=== PATIENT | female | born 1970 | race Caucasian/White ===

== ENCOUNTER 2021-04-29 11:00 | Day surgery (SDC) | payer BC ==
[~2021-04-29 11:00] MED LIST: Bupivacaine 0.5% 30 ML SDV ONE; Dexamethasone 4 MG/ML SDV ONE; Glycopyrrolate 0.2 MG/ML 5 ML MDV ONE; Lactated Ringers 1,000 ML IV SCH; Neostigmine Methylsulfate 1 MG/ML 5 ML Syringe ONE; Nozin Nasal Sanitizer NASBOTH ONE; Ondansetron 4 MG/2 ML SDV ONE; Propofol 200 MG/20 ML SDV ONE; Rocuronium 50 MG/5 ML Vial ONE; Succinylcholine 200 MG/10 ML MDV ONE; ceFAZolin 2 GM in Premix Bag 1 BAG IV ONE; fentaNYL 250 MCG/5 ML SDV ONE
[2021-04-29] MEDS ORDERED: fentaNYL 250 MCG/5 ML SDV ONE (13:08)
[2021-04-29] MEDS: Bupivacaine 0.5% 50 ML MDV ONE ×2 (13:46→14:50)
[2021-04-29] MEDS ORDERED: Rocuronium 50 MG/5 ML Vial ONE (13:50)
[2021-04-29] MEDS ORDERED: Lactated Ringers 1,000 ML ONE (14:12)
[2021-04-29] MEDS ORDERED: Acetaminophen/HYDROcodone 325-5 MG Tab PO PRN (15:54)
[2021-04-29] MEDS ORDERED: Ondansetron 4 MG Tab.DIS PO PRN (16:56)
[2021-04-29 18:16] VITALS: BP 119/77; PULSE 110
--- NOTE | 2021-05-13 20:50 | OR ---
DATE OF PROCEDURE: 04/29/2021 SURGEON: Osbaldo Garcia MD PREOPERATIVE DIAGNOSES: 1. Femoroacetabular impingement, left hip. 2. Labral tear, left hip. 3. Subchondral cyst, left hip. 4. Large paralabral synovial cyst. POSTOPERATIVE DIAGNOSES: 1. Mild degenerative anterior labral tear, left hip. 2. Chondromalacia, acetabular rim, grade 4. 3. Subchondral cyst. 4. Cam lesion, left femoral head. 5. Paralabral synovial cyst. PROCEDURES: 1. Arthroscopy, left hip, with debridement of labrum and decompression of synovial cyst. 2. Osteoplasty of femoral head. 3. Bone grafting of subchondral cyst. DIPPER OPERATOR: PIETER Dick ANESTHESIA: Spinal with sedation. INDICATIONS: Emilia is a 50-year-old female who has been having difficulty with her left hip for the past year or two. This is worse with activities. X-rays and MRIs reveal early degenerative changes with a large subchondral cyst in the acetabulum as well as an extensive paralabral cyst extending up along the iliopsoas, intrapelvic. She also has mild cam lesion of the femoral head. Now presents for evaluation of the labrum for debridement and repair as needed, decompression of the paralabral cyst, debridement and bone grafting of the subchondral cyst in the acetabulum, and osteoplasty of the femoral head. Risks, benefits and potential complications of the procedure were discussed at some length. The assistance of a airplane first officer was utilized for manipulation and passage of instrumentation within the hip joint as well as positioning and manipulation of the leg during the procedure. DESCRIPTION OF PROCEDURE: After adequate anesthesia was obtained, the patient was placed on the fracture table, well-padded perineal post was utilized. Gentle countertraction placed through the right leg and the left hip and leg were prepped and draped in sterile fashion. Longitudinal traction was placed on the left leg, creating approximately 1 cm of distraction at the hip joint. A long spinal needle was then advanced from the anterolateral portal position over the trochanter and into the hip joint. Position was confirmed using fluoroscopy. Guidewire was placed through the spinal needle, a small skin incision was made, and scope cannula was advanced over the guidewire. Camera was introduced. Inspection of the hip joint revealed mild degenerative change of the labrum without amy tear. An area of chondromalacia just inside the labrum at the chondrolabral junction was noted with grade 3 and 4 changes. This would coincide with the changes on MRI and the subchondral cyst. Accessory anterolateral portal was established using fluoroscopic assistance and direct visualization of the joint. A long-handled [place] blade was used to perform a capsulotomy between the 2 portals. Camera was switched between the two and further inspection of the hip revealed no significant degenerative changes of the femoral head. Central portion of the acetabulum showed no full-thickness defects or other significant abnormalities. Using a combination of shaver and radiofrequency ablation wand, light debridement of the labrum was performed. The traction was released. Using fluoroscopy, the area of the subchondral cyst was identified. Soft tissues were cleared above the labrum, the capsular attachment in this region, and a long drill was then placed through the guide typically used for labral repair. Cortex was drilled and fell into the subchondral cyst. A small round bur was then used to enlarge the opening into the cyst. Shaver was introduced, removing synovial fluid and debriding the french. Additional debridement was done with a small curved elevator. Position within the cyst was confirmed fluoroscopically. Approximately 2 mL of demineralized bone matrix putty was then placed into the cyst through a cannula and pushing it in with the obturator of the cannula. The cannula was removed and the obturator again used to impact the putty into position. The hip was slightly flexed and the capsular incision was extended distally along the femoral neck to allow visualization of the femoral head neck junction. A small cam lesion was identified, and using a small round bur, an osteoplasty was performed along the femoral head neck junction, maneuvering the leg from external rotation to neutral and into internal rotation. Fluoroscopic assistance was used to confirm position and resection. Once this was accomplished, all bone fragments were removed. The hip capsule was left open to decompress the potential synovial cyst. Port sites were closed with 3-0 Monocryl. Steri-Strips were applied. Port sites and deep tissue were infiltrated with 0.5% Marcaine. Sterile dressing was applied. The patient tolerated the procedure very well. There were no complications. She was taken from the operating room in stable condition. Osbaldo Garcia MD /[id number] [facility] [id number]
== END 2021-04-29 19:36 | disposition home or self-care (01) ==
LOC: JP.SDS 11:00
PROVIDERS: ATTEND Specialist
DX: S73.102A Unspecified sprain of left hip, initial encounter (principal); M25.852 Other specified joint disorders, left hip; M85.48 Solitary bone cyst, other site; M24.852 Other specific joint derangements of left hip, not elsewhere classified; M94.251 Chondromalacia, right hip; E03.9 Hypothyroidism, unspecified
CPT/HCPCS: 36415; 76000; 80053; 84703; 85027; A9270-GY; C1769; J0330; J0690; J1100; J2405; J2704; J2710; J3010; J3490; J7120